=== PATIENT | female | born 1970 | race Caucasian/White ===

== ENCOUNTER 2018-09-20 23:14 | Inpatient (IN) | payer OTHER ==
[2018-09-21] MEDS ORDERED: NACL 0.9% 3 ML SYG IV
[2018-09-21] MEDS ORDERED: HYDROCODONE/APAP (5/325) TAB PO
[2018-09-21] MEDS ORDERED: ACETAMINOPHEN 325 MG TAB PO
[2018-09-21] MEDS: KETOROLAC 30 MG INJ IV ×3 (00:30→22:34)
[2018-09-21] MEDS: SOD CHLORIDE 0.9% 1,000 ML IV ×2 (00:31→09:35)
[2018-09-21] MEDS: ONDANSETRON 4 MG INJ IV (04:05)
[2018-09-21 06:06] LABS: ADD MAN DIFF? NO
[2018-09-21 06:08] LABS: BASOPHILS % 0.1 % (0.0-2.0); EOSINOPHILS % 0.1 % (0.0-7.0); HEMATOCRIT 37.1 % (37.0-47.0); HEMOGLOBIN 12.5 g/dl (12.0-16.0); LYMPHOCYTES # 0.9 10^3/ul (0.8-2.9); LYMPHOCYTES % 11.8 % (15.0-51.0); MEAN CORPUSCULAR HEMOGLOBIN 31.9 pg (29.0-33.0); MEAN CORPUSCULAR HGB CONC 33.7 g/dl (32.0-37.0); MEAN CORPUSCULAR VOLUME 94.6 fl (82.0-101.0); MEAN PLATELET VOLUME 10.8 fl (7.4-10.4); MONOCYTE # 0.4 10^3/ul (0.3-0.9); MONOCYTES % 5.8 % (0.0-11.0); NEUTROPHIL # 6.2 10^3/ul (1.6-7.5); NEUTROPHILS % 81.4 % (39.0-77.0); PLATELET COUNT 181 10^3/UL (140-415); RED BLOOD COUNT 3.92 10^6/ul (4.20-5.40); RED CELL DISTRIBUTION WIDTH 13.5 % (11.5-14.5)
[2018-09-21 06:08] LABS: WHITE BLOOD COUNT 7.6 10^3/ul (4.8-10.8)
[2018-09-21 06:43] LABS: ALANINE AMINOTRANSFERASE 92 IU/L (13-69); ALBUMIN 4.1 g/dl (3.3-4.9); ALBUMIN/GLOBULIN RATIO 1.05; ALKALINE PHOSPHATASE 89 IU/L (42-121); ANION GAP 15 (5-13); ASPARTATE AMINO TRANSFERASE 75 IU/L (15-46); BLOOD UREA NITROGEN 15 mg/dl (7-20); CALCIUM 8.3 mg/dl (8.4-10.2); CARBON DIOXIDE 25 mmol/L (21-31); CHLORIDE 102 mmol/L (97-110); Estimated GFR 53 mL/min (>60); GLUCOSE 177 mg/dl (70-220); MAGNESIUM 1.9 mg/dl (1.7-2.5); PHOSPHORUS 3.6 mg/dl (2.5-4.9); POTASSIUM 3.5 mmol/L (3.5-5.1); SODIUM 142 mmol/L (135-144)
[2018-09-21] MEDS ORDERED: [UNRECOGNIZED DRUG - OTHER] PO ×2 (08:00→08:37)
[2018-09-21] MEDS: PANTOPRAZOLE (EC) 40 MG TAB PO (09:34)
[2018-09-21] MEDS: D5W-0.45 NACL + KCL 20 MEQ 1,000 ML IV ×2 (13:41→23:48)
[2018-09-21 13:49] LABS: LIPASE 95 U/L (23-300)
[2018-09-21] MEDS: [UNRECOGNIZED DRUG - OTHER] PO (14:54)
[2018-09-21] MEDS: HYDROCODONE/APAP (5/325) TAB PO (20:07)
[2018-09-22] MEDS: LEVOTHYROXINE 100 MCG TAB PO (05:43)
[2018-09-22] MEDS: PANTOPRAZOLE (EC) 40 MG TAB PO (05:43)
[2018-09-22] MEDS: KETOROLAC 30 MG INJ IV ×2 (05:46→12:11)
[2018-09-22 06:41] LABS: ADD MAN DIFF? NO
[2018-09-22 06:48] LABS: BASOPHILS % 0.1 % (0.0-2.0); EOSINOPHILS % 0.6 % (0.0-7.0); HEMATOCRIT 37.3 % (37.0-47.0); HEMOGLOBIN 12.4 g/dl (12.0-16.0); LYMPHOCYTES # 1.3 10^3/ul (0.8-2.9); LYMPHOCYTES % 18.4 % (15.0-51.0); MEAN CORPUSCULAR HEMOGLOBIN 31.9 pg (29.0-33.0); MEAN CORPUSCULAR HGB CONC 33.2 g/dl (32.0-37.0); MEAN CORPUSCULAR VOLUME 95.9 fl (82.0-101.0); MEAN PLATELET VOLUME 10.6 fl (7.4-10.4); MONOCYTE # 0.5 10^3/ul (0.3-0.9); MONOCYTES % 6.7 % (0.0-11.0); NEUTROPHIL # 5.2 10^3/ul (1.6-7.5); NEUTROPHILS % 73.8 % (39.0-77.0); PLATELET COUNT 184 10^3/UL (140-415); RED BLOOD COUNT 3.89 10^6/ul (4.20-5.40); RED CELL DISTRIBUTION WIDTH 13.7 % (11.5-14.5)
[2018-09-22 07:13] LABS: ALANINE AMINOTRANSFERASE 86 IU/L (13-69); ALBUMIN 3.9 g/dl (3.3-4.9); ALKALINE PHOSPHATASE 84 IU/L (42-121); ANION GAP 10 (5-13); ASPARTATE AMINO TRANSFERASE 69 IU/L (15-46); BILIRUBIN,INDIRECT 0.7 mg/dl (0-1.1); BILIRUBIN,TOTAL 0.7 mg/dl (0.2-1.3); BLOOD UREA NITROGEN 11 mg/dl (7-20); CALCIUM 8.1 mg/dl (8.4-10.2); CARBON DIOXIDE 26 mmol/L (21-31); CHLORIDE 101 mmol/L (97-110); CREATININE 1.11 mg/dl (0.44-1.00); Estimated GFR 52 mL/min (>60); GLUCOSE 148 mg/dl (70-220); POTASSIUM 3.9 mmol/L (3.5-5.1); SODIUM 137 mmol/L (135-144); TOTAL PROTEIN 7.8 g/dl (6.1-8.1)
[2018-09-22] MEDS: D5W-0.45 NACL + KCL 20 MEQ 1,000 ML IV (09:31)
== END 2018-09-22 15:38 | disposition home or self-care (01) | DRG 392 ==
LOC: PP2 09-21 00:53
PROVIDERS: Internal Medicine
DX: R10.13 Epigastric pain (principal); E03.9 Hypothyroidism, unspecified; I12.9 Hypertensive chronic kidney disease with stage 1 through stage 4 chronic kidney disease, or unspecified chronic kidney disease; N18.9 Chronic kidney disease, unspecified; E78.5 Hyperlipidemia, unspecified; E66.9 Obesity, unspecified; R10.9 Unspecified abdominal pain; R11.2 Nausea with vomiting, unspecified; Z68.38 Body mass index [BMI] 38.0-38.9, adult; Z85.3 Personal history of malignant neoplasm of breast; Z92.21 Personal history of antineoplastic chemotherapy
CPT/HCPCS: 80053; 83036; 83690; 83735; 84100; 84443; 85025; 87081